=== PATIENT | female | born 1970 | race Two or more races ===

== ENCOUNTER 2023-09-04 12:11 | Emergency (ER) | payer OTHER ==
[~2023-09-04] VITALS: Ht 167.6 cm; Wt 61.2 kg
[2023-09-04] MEDS ORDERED: DUI500 PO (15:54)
== END 2023-09-04 16:13 | disposition home or self-care (01) ==
LOC: ER 12:11
DX: S51.012A Laceration without foreign body of left elbow, initial encounter (principal); W25.XXXA Contact with sharp glass, initial encounter; Y93.9 Activity, unspecified; Y92.9 Unspecified place or not applicable; Y99.9 Unspecified external cause status